=== PATIENT | female | born 1980 | race Two or more races ===

== ENCOUNTER 2019-01-03 15:56 | Emergency (ER) | payer MEDICAID ==
[~2019-01-03] VITALS: Ht 170.2 cm; Wt 104.3 kg
[~2019-01-03 15:56] MED LIST: PREN-129 OR
[2019-01-03 16:09] VITALS: BP 170/81
[2019-01-03] MEDS ORDERED: BACITRACIN TOP OINT 1 UD PKG TOP ONE (16:45)
== END 2019-01-03 16:54 | disposition home or self-care (01) ==
LOC: ER 15:56
DX: S61.212A Laceration without foreign body of right middle finger without damage to nail, initial encounter (principal); Z90.49 Acquired absence of other specified parts of digestive tract; W22.8XXA Striking against or struck by other objects, initial encounter; Y93.89 Activity, other specified; Y92.89 Other specified places as the place of occurrence of the external cause; Y99.8 Other external cause status